=== PATIENT | female | born 1945 | race Caucasian/White ===

== ENCOUNTER 2016-09-06 21:55 | Emergency (ER) | payer OTHER, MEDICARE ==
--- NOTE | 2016-09-06 23:24 | ED SKIN/ALLERGY COMPLAINT ---
History of Present Illness General Chief Complaint: Allergy Symptoms Stated Complaint: " INTERNAL POISON EDD" Source: patient, family Exam Limitations: no limitations Allergies Uncoded Allergies: EMYCIN (GI UPSET 09/06/16) Reconcile Medications Methylprednisolone. (Medrol) 4 MG TAB.[id number].PK 1 DP PO AD poison edd 6 on day 1 then reduce by one tablet daily until gone Triage Note: PER PT GOT INTO POISON EDD DURING THE WEEK, EVERYWHERE THINK IT HAS GONE INTERNAL, FELLING ITCHY INSIDE. NO REPS DISTRESS Triage Nurses Notes Reviewed? yes Onset: Gradual Duration: day(s): Timing: recent history Severity: moderate Possible Factors: exposure to allergen : No Patient currently breastfeeds: No HPI: 70-year-old female presents to emergency complaining of poison edd. She states that last week she was pulling weeds and was exposed to poison edd. He states she has a rash on both arms, her right leg and her back x 1 week. She states she is worried about inhaled poison edd because she is complaining of itchy and scratchy throat times one day. She also complains of dry cough and mild dyspnea. She denies chest pain, fevers, chills, abdominal pain, arthralgias. (ZHANG MYERS PA-C) Vital Signs & Intake/Output Vital Signs & Intake/Output Vital Signs Date Time Temp Pulse Resp B/P B/P Pulse O2 O2 Flow FiO2 Mean Ox Delivery Rate 09/06 2355 98.0 72 22 122/70 98 09/06 2230 Room Air 09/06 2206 97.9 84 22 134/77 98 Room Air ED Intake and Output 09/07 0000 09/06 1200 Intake Total Output Total Balance Patient 132 lb Weight Past History Travel History Traveled to [place] past 21 day No Medical History Any Pertinent Medical History? none Neurological: NONE EENT: NONE Cardiovascular: NONE Respiratory: NONE Gastrointestinal: NONE Hepatic: NONE Renal: NONE Musculoskeletal: NONE Psychiatric: NONE Endocrine: NONE Surgical History Surgical History: non-contributory Psychosocial History What is your primary language [place] Tobacco Use: Never used Family History Hx Contributory? No (ZHANG MYERS PA-C) Review of Systems Review of Systems Constitutional: Reports: no symptoms. EENTM: Reports: see HPI. Respiratory: Reports: see HPI. Cardiovascular: Reports: no symptoms. GI: Reports: no symptoms. Genitourinary: Reports: no symptoms. Musculoskeletal: Reports: no symptoms. Skin: Reports: see HPI. Neurological/Psychological: Reports: no symptoms. Hematologic/Endocrine: Reports: no symptoms. Immunologic/Allergic: Reports: no symptoms. All Other Systems: Reviewed and Negative (ZHANG MYERS PA-C) Physical Exam Physical Exam General Appearance: well developed/nourished, no apparent distress, alert, awake Head: atraumatic, normal appearance Eyes: Bilateral: normal appearance, EOMI. Ears, Nose, Throat: normal pharynx, normal ENT inspection, hearing grossly normal Neck: normal inspection, supple, full range of motion Respiratory: normal breath sounds, no respiratory distress, lungs clear Cardiovascular: regular rate/rhythm Back: normal range of motion Extremities: normal range of motion, no edema Neurologic/Psych: awake, alert, oriented x 3, normal mood/affect Skin: erythematous raised maculopapular rash scattered on forearms, lower back, right anterior calf Skin Problem Location: upper extremities, torso, lower extremities Skin Problem Character: blanching, erythema, macules, papules, patchy (ZHANG MYERS PA-C) Progress Differential Diagnosis: abscess/cellulitis, allergic reaction, contact dermatitis, drug reaction, erythema multiforme, piyriasis rosea, shingles, urticaria Plan of Care: Patient with positive exposure of poison edd while gardening. She was described as itchy, non-tender. Breath sounds are clear, no erythema or patches visible in pharynx, no respiratory distress. Patient was reassured that likelihood of an healing poison edd is very low considering they were not burning the plant, only weeding. The patient was given prescription for Medrol Dosepak as rash was spreading across multiple areas of her body she was also educated on over-the- counter allergy relief medications for her respiratory symptoms. The patient is well-appearing. The patient Was seen and evaluated by Dr. Cruz. The patient will follow-up with her primary care doctor as needed. The patient is in agreement with the plan of care. (ZHANG MYERS PA-C) Departure Departure Disposition: HOME OR SELF CARE Condition: Stable Clinical Impression Primary Impression: Poison edd Secondary Impressions: Post-nasal drip Referrals: TONY NAYLOR,CHARLES Franco (PCP/Family) Additional Instructions: Take full course of steroids for poison edd. Take [id number] Flonase, nasal saline spray, Afrin, Benadryl, OR Claritin as prescribed as needed for allergy related symptoms. Follow-up with your primary care doctor as needed. Return with any worsening symptoms, spreading rash, fevers, joint pains. Departure Forms: Customer Survey General Discharge Information Prescriptions: Current Visit Scripts Methylprednisolone. (Medrol) 1 DP PO AD #1 DP 6 on day 1 then reduce by one tablet daily until gone (ZHANG MYERS PA-C) PA/MOLDER OFFBEARER Co-Sign Statement Statement: ED Attending supervision documentation- [x] I saw and evaluated the patient. I have also reviewed all the pertinent lab results and diagnostic results. I agree with the findings and the plan of care as documented in the PA's/MOLDER OFFBEARER's documentation. [] I have reviewed the ED Record and agree with the PA's/MOLDER OFFBEARER's documentation. [] Additions or exceptions (if any) to the PAs/MOLDER OFFBEARER's note and plan are summarized below: [] (CHANTE NAYLOR,JOO Doty)
[2016-09-06] MEDS ORDERED: MEDROL4 M2 PO (23:46)
[2016-09-06 23:55] VITALS: BP 122/70
== END 2016-09-06 23:55 ==
LOC: ERH 21:55
DX: L23.7 Allergic contact dermatitis due to plants, except food (principal); R09.82 Postnasal drip